=== PATIENT | male | born 1975 | race Hispanic/Latino ===

== ENCOUNTER 2021-01-05 02:14 | Inpatient (IN) | payer OTHER ==
[~2021-01-05] VITALS: Ht 175.3 cm; Wt 89.3 kg
[2021-01-05] MEDS ORDERED: FUROSEMIDE 40MG VIAL IV ONE (03:00)
[2021-01-05 03:03] LABS: ABG BASE EXCESS 0.5 mmol/L (-2.0-3.0); ABG HCO3 22.6 mmol/L (21.0-28.0); ABG OXYGEN SATURATION 90.9 % (95.0-99.0); ABG PCO2 30 mmHg (35-48)
[2021-01-05 03:08] LABS: BASOPHILS % (AUTO) 0.3 % (0.0-5.0); EOSINOPHILS % (AUTO) 0.1 % (0.0-8.0); HEMATOCRIT 48.1 % (42-54); LYMPHOCYTES % (AUTO) 6.3 % (21.0-51.0); MEAN CORPUSCULAR HEMOGLOBIN 32.3 pg (27.0-33.0); MEAN CORPUSCULAR HGB CONC 35.1 g/dL (32.0-36.0); MONOCYTES % (AUTO) 4.5 % (3.0-13.0); NEUTROPHILS % (AUTO) 88.4 % (40.0-77.0); PLATELET COUNT (AUTO) 218 K/uL (130-400); RED BLOOD CELL COUNT(AUTO) 5.23 MIL/uL (4.50-6.20); RED CELL DISTRIBUTION WIDTH 13.1 % (11.0-15.5); WHITE BLOOD COUNT (AUTO) 17.6 K/uL (4.8-10.8)
[2021-01-05 03:31] LABS: ALBUMIN 3.9 g/dL (3.5-5.0); BILIRUBIN,TOTAL 1.2 mg/dL (0.2-1.0); CREATININE 1.5 mg/dL (0.5-1.5); TOTAL PROTEIN, SERUM 7.4 g/dL (6.0-8.3)
[2021-01-05 03:48] LABS: INR 1.07 (0.85-1.15); PROTHROMBIN TIME 11.6 SEC (9.6-11.6)
[2021-01-05] MEDS ORDERED: AZITHROMYCIN 500MG VIAL IVPB ONE (04:00)
[2021-01-05] MEDS ORDERED: AZITHROMYCIN 500MG+NS 250ML 250 ML IV ONE (04:00)
[2021-01-05] MEDS ORDERED: PHARMACY COMMUNICATION MISC SCH ×2 (04:00→12:30)
[2021-01-05] MEDS ORDERED: CEFTRIAXONE 1G VIAL IVP ONE (04:00)
[2021-01-05 04:02] LABS: APPEARANCE,URINE Clear (CLEAR); BILIRUBIN,URINE Negative (NEGATIVE); COLOR,URINE Yellow (YELLOW); GLUCOSE, URINE (UA) Negative (NEGATIVE); KETONES,URINE Negative (NEGATIVE); LEUKOCYTE ESTERASE ,URINE Negative (NEGATIVE); NITRATE,URINE Negative (NEGATIVE); OCCULT BLOOD,URINE Negative (NEGATIVE); PROTEIN,URINE POS 2+ mg/dL (NEGATIVE); UROBILINOGEN,URINE 0.2 mg/dL (0.2-1.0)
[2021-01-05] MEDS ORDERED: AMLO-257 PO (04:12)
[2021-01-05] MEDS ORDERED: ALLO300T2 PO (04:12)
[2021-01-05] MEDS ORDERED: PRAV10TA39 PO (04:12)
[2021-01-05 04:25] LABS: BACTERIA,URINE Few /HPF (None Seen); RBC,URINE None Seen /HPF (0-1); SQUAMOUS EPITHELIAL CELL,UR 0-2 /HPF (0-2); WBC,URINE None Seen /HPF (0-1)
[2021-01-05] MEDS ORDERED: ACETAMINOPHEN 325 MG TAB PO PRN (04:30)
[2021-01-05] MEDS ORDERED: AZITHROMYCIN 500MG VIAL IVPB SCH (04:30)
[2021-01-05] MEDS ORDERED: ONDANSETRON 4MG INJ IV PRN (04:30)
[2021-01-05] MEDS ORDERED: 0.9% NACL 250ML IVPB SCH (04:30)
[2021-01-05] MEDS ORDERED: IPRATROPIUM/ALBUTEROL SULFATE 3 ML SOLUTION IH ONE (04:50)
[2021-01-05] MEDS: LACTATED RINGERS 1000ML 1,000 ML IV SCH ×2 (04:51→14:30)
[2021-01-05] MEDS ORDERED: POTASSIUM CHLORIDE 10% ELIXIR 20 MEQ/15 ML UDCUP PO PRN (05:00)
[2021-01-05] MEDS: POTASSIUM CHLORIDE 20MEQ/100ML 100 ML IV PRN (05:13)
[2021-01-05] MEDS: LIDOCAINE HCL-MPF 1% 2ML VIAL IV PRN (05:13)
[2021-01-05] MEDS: IPRATROPIUM/ALBUTEROL SULFATE 3 ML SOLUTION IH SCH ×3 (06:00→18:31)
[2021-01-05 08:36] LABS: AMPHET/METH SCREEN,URINE NEGATIVE (NEGATIVE); BARBITURATE SCREEN, URINE NEGATIVE (NEGATIVE); BENZODIAZEPINES SCREEN,URINE NEGATIVE (NEGATIVE); CANNABINOID SCREEN,URINE NEGATIVE (NEGATIVE); COCAINE SCREEN,URINE NEGATIVE (NEGATIVE); OPIATE SCREEN,URINE NEGATIVE (NEGATIVE); PHENCYCLIDINE SCREEN,URINE NEGATIVE (NEGATIVE)
[2021-01-05] MEDS: LEVOFLOXACIN 750 MG/D5W 150 ML 150 ML IV SCH (08:51)
[2021-01-05] MEDS: FAMOTIDINE 20MG VIAL IV SCH ×2 (08:51→22:21)
[2021-01-05] MEDS ORDERED: ENOXAPARIN SODIUM 40 MG/0.4 ML SYRINGE SQ SCH (09:00)
[2021-01-05 11:07] LABS: CREATININE 1.5 mg/dL (0.5-1.5); CRP QUANTITATIVE 119.8 mg/L (0.00-9.0); POTASSIUM 3.2 mmol/L (3.5-5.1)
[2021-01-05] MEDS ORDERED: SOLU-MEDROL 40MG VIAL ONE (11:30)
[2021-01-05] MEDS ORDERED: ASPIRIN 81MG CHEW TAB ONE (11:31)
[2021-01-05] MEDS ORDERED: ASPIRIN 81MG CHEW TAB PO ONE (12:30)
[2021-01-05] MEDS ORDERED: KCL 20 MEQ ERTAB PO ONE (12:30)
[2021-01-05] MEDS ORDERED: ROCURONIUM BROMIDE 10MG/1ML 5ML VL IV ONE (12:58)
[2021-01-05] MEDS ORDERED: SUCCINYLCHOLINE CHLORIDE 20 MG/ML 10 ML VIAL IVP ONE (12:58)
[2021-01-05] MEDS ORDERED: ETOMIDATE 20MG VIAL IVP ONE (12:58)
[2021-01-05 13:21] LABS: INR 1.1 (0.85-1.15); PROTHROMBIN TIME 11.9 SEC (9.6-11.6)
[2021-01-05 13:23] LABS: PARTIAL THROMBOPLASTIN TIME 29.9 SEC (26.3-35.5)
[2021-01-05] MEDS: HEPARIN 25000 UNITS/D5W 250ML IV SCH (14:11)
[2021-01-05] MEDS ORDERED: METOPROLOL TARTRATE 25 MG TAB ONE (14:21)
[2021-01-05] MEDS ORDERED: TICAGRELOR 90 MG TABLET ONE (14:21)
[2021-01-05] MEDS ORDERED: TICAGRELOR 90 MG TABLET PO SCH (14:30)
[2021-01-05] MEDS ORDERED: NITROGLYCERIN 0.4 MG SL TAB SL PRN (15:00)
[2021-01-05] MEDS ORDERED: LORAZEPAM 0.5 MG TABLET ONE (16:03)
[2021-01-05 19:36] LABS: CREATININE 1.7 mg/dL (0.5-1.5); POTASSIUM 3.1 mmol/L (3.5-5.1)
[2021-01-05 21:31] LABS: INR 1.15 (0.85-1.15); PROTHROMBIN TIME 12.4 SEC (9.6-11.6)
[2021-01-05 21:32] LABS: PARTIAL THROMBOPLASTIN TIME 47.6 SEC (26.3-35.5)
[2021-01-05] MEDS: TICAGRELOR 90 MG TABLET PO SCH (22:21)
[2021-01-05] MEDS: ATORVASTATIN 20 MG TABLET PO SCH (22:21)
[2021-01-05] MEDS: METOPROLOL TARTRATE 25 MG TAB PO SCH (22:21)
[2021-01-05 22:50] VITALS: BP 150/96
[2021-01-06] VITALS (13 sets, daily range): BP systolic 109–153; BP diastolic 48–98
[2021-01-06] MEDS: IPRATROPIUM/ALBUTEROL SULFATE 3 ML SOLUTION IH SCH ×4 (00:45→18:28)
[2021-01-06] MEDS: GUAIFENESIN-DM 200/20 MG 10 ML PO PRN ×4 (03:43→21:18)
[2021-01-06 04:25] LABS: HEMATOCRIT 44.8 % (42-54); MEAN CORPUSCULAR HEMOGLOBIN 31.9 pg (27.0-33.0); MEAN CORPUSCULAR HGB CONC 34.2 g/dL (32.0-36.0); MEAN CORPUSCULAR VOLUME 93.3 fL (79-99); MONOCYTES % (AUTO) 4.6 % (3.0-13.0); NEUTROPHILS % (AUTO) 86.8 % (40.0-77.0); PLATELET COUNT (AUTO) 234 K/uL (130-400); RED CELL DISTRIBUTION WIDTH 13.4 % (11.0-15.5); WHITE BLOOD COUNT (AUTO) 11.9 K/uL (4.8-10.8)
[2021-01-06] MEDS ORDERED: AZITHROMYCIN 500MG+NS 250ML 250 ML IV SCH (04:30)
[2021-01-06] MEDS ORDERED: CEFTRIAXONE 1G VIAL IV SCH (04:30)
[2021-01-06 04:55] LABS: CREATININE 1.4 mg/dL (0.5-1.5); PHOSPHORUS 4.3 mg/dL (2.5-4.9); POTASSIUM 3.5 mmol/L (3.5-5.1)
[2021-01-06] MEDS: HEPARIN 25000 UNITS/D5W 250ML IV SCH (05:08)
[2021-01-06] MEDS: METOPROLOL TARTRATE 25 MG TAB PO SCH ×2 (08:04→21:18)
[2021-01-06] MEDS ORDERED: HEPARIN 10,000 UNIT/10ML (1,000 UNIT/ML) VIAL ONE (08:05)
[2021-01-06] MEDS: SOLU-MEDROL 40MG VIAL IVP SCH (08:05)
[2021-01-06] MEDS ORDERED: NITROGLYCERIN 2 MG VIAL IV ONE (08:05)
[2021-01-06] MEDS: ASPIRIN 81MG CHEW TAB PO SCH (08:05)
[2021-01-06] MEDS: TICAGRELOR 90 MG TABLET PO SCH ×2 (08:05→21:18)
[2021-01-06] MEDS ORDERED: IOHEXOL 350 MG/ML 100ML INFUS..BTL IV ONE (08:06)
[2021-01-06] MEDS ORDERED: LIDOCAINE HCL 400MG/20ML VIAL ONE (08:06)
[2021-01-06] MEDS: FAMOTIDINE 20MG VIAL IV SCH ×2 (08:07→21:18)
[2021-01-06] MEDS ORDERED: FENTANYL CITRATE PF 50 MCG/1 ML 2ML VIAL ONE (08:36)
[2021-01-06] MEDS ORDERED: MIDAZOLAM HCL 1 MG/ML 2ML VIAL ONE (08:36)
[2021-01-06] MEDS ORDERED: NICARDIPINE 25MG INJ IV ONE (08:48)
[2021-01-06] MEDS: LEVOFLOXACIN 750 MG/D5W 150 ML 150 ML IV SCH (11:29)
[2021-01-06] MEDS ORDERED: HEPARIN 5,000 UNIT VIAL IJ PRN (14:30)
[2021-01-06] MEDS: LINEZOLID 600 MG/ISO-OSM 300 ML IV SCH (16:42)
[2021-01-06] MEDS: ATORVASTATIN 20 MG TABLET PO SCH (21:18)
[2021-01-06] MEDS ORDERED: HYDROXYZINE 25 MG TABLET ONE (23:16)
[2021-01-06] MEDS ORDERED: HYDROXYZINE 25 MG TABLET PO ONE (23:30)
[2021-01-07] VITALS (36 sets, daily range): BP systolic 71–155; BP diastolic 42–99
[2021-01-07] MEDS: IPRATROPIUM/ALBUTEROL SULFATE 3 ML SOLUTION IH SCH ×2 (00:25→06:59)
[2021-01-07 01:33] LABS: BASOPHILS % (AUTO) 0.1 % (0.0-5.0); EOSINOPHILS % (AUTO) 0.1 % (0.0-8.0); HEMATOCRIT 46.4 % (42-54); LYMPHOCYTES % (AUTO) 4.9 % (21.0-51.0); MEAN CORPUSCULAR HEMOGLOBIN 32.5 pg (27.0-33.0); MEAN CORPUSCULAR HGB CONC 34.5 g/dL (32.0-36.0); MEAN CORPUSCULAR VOLUME 94.3 fL (79-99); MONOCYTES % (AUTO) 4.6 % (3.0-13.0); NEUTROPHILS % (AUTO) 89.8 % (40.0-77.0); PLATELET COUNT (AUTO) 218 K/uL (130-400); RED BLOOD CELL COUNT(AUTO) 4.92 MIL/uL (4.50-6.20); RED CELL DISTRIBUTION WIDTH 13.6 % (11.0-15.5); WHITE BLOOD COUNT (AUTO) 18.1 K/uL (4.8-10.8)
[2021-01-07 01:42] LABS: HEMOGLOBIN A1C 5.5 % (4.0-6.0)
[2021-01-07 01:47] LABS: CREATININE 1.7 mg/dL (0.5-1.5); TOTAL PROTEIN, SERUM 6.5 g/dL (6.0-8.3)
[2021-01-07] MEDS: GUAIFENESIN-DM 200/20 MG 10 ML PO PRN ×2 (02:07→05:29)
[2021-01-07] MEDS ORDERED: BENZONATATE 100 MG CAPSULE PO PRN (02:30)
[2021-01-07] MEDS: KCL 20 MEQ ERTAB PO PRN ×2 (02:56→05:05)
[2021-01-07] MEDS: LIDOCAINE HCL-MPF 1% 2ML VIAL IV PRN (02:56)
[2021-01-07] MEDS: POTASSIUM CHLORIDE 20MEQ/100ML 100 ML IV PRN (02:56)
[2021-01-07] MEDS: LINEZOLID 600 MG/ISO-OSM 300 ML IV SCH ×2 (05:03→19:31)
[2021-01-07] MEDS: LEVOFLOXACIN 750 MG/D5W 150 ML 150 ML IV SCH (07:18)
[2021-01-07] MEDS ORDERED: DOXYCYCLINE 100MG IVPB (VIAL) IVPB SCH (07:30)
[2021-01-07] MEDS ORDERED: RENAL DOSE IV SCH (07:30)
[2021-01-07] MEDS ORDERED: 0.9% NACL 250ML IVPB SCH (07:30)
[2021-01-07] MEDS ORDERED: IPRATROPIUM/ALBUTEROL SULFATE 3 ML SOLUTION IH PRN (08:00)
[2021-01-07] MEDS: FAMOTIDINE 20MG VIAL IV SCH ×2 (08:12→21:23)
[2021-01-07] MEDS: MEROPENEM 1 GM VIAL IVP SCH ×3 (08:13→23:58)
[2021-01-07] MEDS: FUROSEMIDE 40MG VIAL IV SCH ×3 (08:13→19:31)
[2021-01-07] MEDS: DOXYCYCLINE 100MG+NS 250ML 250 ML IV SCH ×2 (08:13→21:32)
[2021-01-07] MEDS: MORPHINE 2 MG SYG IVP SCH (08:14)
[2021-01-07] MEDS: SOLU-MEDROL 40MG VIAL IVP SCH (08:14)
[2021-01-07] MEDS: METOPROLOL TARTRATE 25 MG TAB PO SCH ×2 (08:15→21:00)
[2021-01-07] MEDS: ASPIRIN 81MG CHEW TAB PO SCH (08:15)
[2021-01-07] MEDS: TICAGRELOR 90 MG TABLET PO SCH ×2 (08:15→21:32)
[2021-01-07] MEDS: POTASSIUM CHLORIDE 10MEQ/100ML 10 MEQ/100 ML ML IV SCH (11:00)
[2021-01-07] MEDS ORDERED: PROPOFOL 1000 MG/100 ML 100 ML IV ONE ×3 (11:02→18:26)
[2021-01-07] MEDS ORDERED: FENTANYL CITRATE PF 50 MCG/1 ML 2ML VIAL ONE (11:09)
[2021-01-07] MEDS: FENTANYL 100 MCG/HR PATCH TD SCH (11:30)
[2021-01-07] MEDS ORDERED: DOBUTAMINE 250MG/D5 250ML 250 ML IV SCH (12:00)
[2021-01-07] MEDS ORDERED: PHARMACY COMMUNICATION MISC SCH (12:00)
[2021-01-07] MEDS ORDERED: ROCURONIUM 100 MG/NS 100ML (DRIP) IV SCH ×2 (12:00)
[2021-01-07] MEDS ORDERED: PERFLUTREN PROTEIN-A MICROSPHR 0.22 MG/ML VIAL IV ONE (12:00)
[2021-01-07] MEDS ORDERED: 0.9% NACL 500ML IV.SOLN 500 ML IV ONE (12:16)
[2021-01-07] MEDS ORDERED: MIDAZOLAM 50MG-0.9% NS 50ML 50 ML BAG IV SCH (12:30)
[2021-01-07 12:52] LABS: ABG BASE EXCESS -3.5 mmol/L (-2.0-3.0); ABG OXYGEN SATURATION 84.1 % (95.0-99.0); ABG PCO2 47 mmHg (35-48)
[2021-01-07 13:20] LABS: BASOPHILS % (AUTO) 0.1 % (0.0-5.0); HEMATOCRIT 44.4 % (42-54); LYMPHOCYTES % (AUTO) 2.8 % (21.0-51.0); MEAN CORPUSCULAR HEMOGLOBIN 32.2 pg (27.0-33.0); MEAN CORPUSCULAR HGB CONC 33.6 g/dL (32.0-36.0); MEAN CORPUSCULAR VOLUME 95.9 fL (79-99); MONOCYTES % (AUTO) 2.4 % (3.0-13.0); PLATELET COUNT (AUTO) 240 K/uL (130-400); RED BLOOD CELL COUNT(AUTO) 4.63 MIL/uL (4.50-6.20); RED CELL DISTRIBUTION WIDTH 13.6 % (11.0-15.5); WHITE BLOOD COUNT (AUTO) 15.4 K/uL (4.8-10.8)
[2021-01-07 13:29] LABS: INR 1.15 (0.85-1.15); PROTHROMBIN TIME 12.4 SEC (9.6-11.6)
[2021-01-07 13:31] LABS: PARTIAL THROMBOPLASTIN TIME 24.8 SEC (26.3-35.5)
[2021-01-07 13:42] LABS: POTASSIUM 3.9 mmol/L (3.5-5.1)
[2021-01-07 13:43] LABS: BILIRUBIN,DIRECT 0.3 mg/dL (0.0-0.3); BILIRUBIN,TOTAL 1.2 mg/dL (0.2-1.0); CREATININE 1.9 mg/dL (0.5-1.5); MAGNESIUM 1.9 mg/dL (1.80-2.40); PHOSPHORUS 5.2 mg/dL (2.5-4.9)
[2021-01-07 13:44] LABS: ALBUMIN 2.6 g/dL (3.5-5.0); TOTAL PROTEIN, SERUM 6.1 g/dL (6.0-8.3)
[2021-01-07] MEDS ORDERED: HEPARIN 10,000 UNIT/10ML (1,000 UNIT/ML) VIAL ONE (14:11)
[2021-01-07] MEDS ORDERED: LIDOCAINE HCL 400MG/20ML VIAL ONE (14:11)
[2021-01-07] MEDS: FENTANYL 2500MCG+NS 250ML IV.SOLN IV SCH ×2 (14:39→21:57)
[2021-01-07] MEDS ORDERED: IOHEXOL 350 MG/ML 100ML INFUS..BTL IV ONE (14:47)
[2021-01-07] MEDS ORDERED: HEPARIN 25,000 UNITS/250ML D5W 250 ML IV ONE (15:48)
[2021-01-07] MEDS ORDERED: DEXTROSE 5%-WATER 1,000 ML IV SCH (17:00)
[2021-01-07 17:54] LABS: ABG HCO3 22.8 mmol/L (21.0-28.0); ABG OXYGEN SATURATION 98.9 % (95.0-99.0); ABG PCO2 39 mmHg (35-48)
[2021-01-07] MEDS: WATER IV SCH (18:15)
[2021-01-07] MEDS: HEPARIN IV SCH (18:15)
[2021-01-07] MEDS: DEXTROSE 5% IV SCH (18:15)
[2021-01-07] MEDS: NOREPINEPHRIN 4MG/NS 250ML 250 ML IV SCH (18:33)
[2021-01-07 18:44] LABS: HEMATOCRIT 39.4 % (42-54); MEAN CORPUSCULAR HEMOGLOBIN 32.4 pg (27.0-33.0); MEAN CORPUSCULAR VOLUME 95.4 fL (79-99); PLATELET COUNT (AUTO) 256 K/uL (130-400); RED BLOOD CELL COUNT(AUTO) 4.13 MIL/uL (4.50-6.20); RED CELL DISTRIBUTION WIDTH 13.2 % (11.0-15.5); WHITE BLOOD COUNT (AUTO) 17.7 K/uL (4.8-10.8)
[2021-01-07 18:59] LABS: CREATININE 2.1 mg/dL (0.5-1.5); POTASSIUM 3.9 mmol/L (3.5-5.1)
[2021-01-07 19:10] LABS: BAND NEUTROPHILS % (MANUAL) 6 % (0-2); LYMPHOCYTES % (MANUAL) 2 % (22-44); MAN.DIFF COMMENT-IMPRESSION MANUAL DIFFERENTIAL; MONOCYTES % (MANUAL) 4 % (2-9); SEGMENTED NEUTROPHILS % 88 % (40-70)
[2021-01-07 19:11] LABS: PLATELET MORPHOLOGY COMMENT LARGE PLTS PRESENT
[2021-01-07] MEDS: ATORVASTATIN 20 MG TABLET PO SCH (21:33)
[2021-01-07] MEDS: MIDAZOLAM 100MG-0.9% NS 100ML 100 ML IV SCH (21:39)
[2021-01-07 22:06] LABS: APPEARANCE BODY FLUID CLOUDY (CLEAR); BODY FLUID WBC 465 /cu. mm.; COLOR,BODY FLUID ORANGE (LT YELLOW); SPECIMENTYPE,BODY FLUID WASHINGS; TOTAL VOLUME,BODY FLUID 17 mL
[2021-01-07 22:07] LABS: BODY FLUID RBC 6462 /cu. mm.; PH, BODY FLUID 6
[2021-01-07 22:09] LABS: GLUCOSE,BODY FLUID 24 mg/dL (1-40)
[2021-01-07 22:19] LABS: BF EOSINOPHIL 1 %; BF LYMPHOCYTE 4 %
[2021-01-08] VITALS (43 sets, daily range): BP systolic 111–131; BP diastolic 77–96
[2021-01-08] MEDS: NOREPINEPHRIN 4MG/NS 250ML 250 ML IV SCH ×2 (01:14→14:38)
[2021-01-08 04:20] LABS: BASOPHILS % (AUTO) 0.1 % (0.0-5.0); EOSINOPHILS % (AUTO) 0.1 % (0.0-8.0); LYMPHOCYTES % (AUTO) 7.7 % (21.0-51.0); MEAN CORPUSCULAR HEMOGLOBIN 31.8 pg (27.0-33.0); MEAN CORPUSCULAR HGB CONC 33.5 g/dL (32.0-36.0); MEAN CORPUSCULAR VOLUME 94.9 fL (79-99); MONOCYTES % (AUTO) 7.8 % (3.0-13.0); NEUTROPHILS % (AUTO) 83.6 % (40.0-77.0); PLATELET COUNT (AUTO) 212 K/uL (130-400); RED CELL DISTRIBUTION WIDTH 13.2 % (11.0-15.5); WHITE BLOOD COUNT (AUTO) 14.9 K/uL (4.8-10.8)
[2021-01-08 04:38] LABS: ALBUMIN 2.2 g/dL (3.5-5.0); BILIRUBIN,TOTAL 0.9 mg/dL (0.2-1.0); CREATININE 2.5 mg/dL (0.5-1.5); POTASSIUM 3.6 mmol/L (3.5-5.1); TOTAL PROTEIN, SERUM 5.3 g/dL (6.0-8.3)
[2021-01-08] MEDS: LINEZOLID 600 MG/ISO-OSM 300 ML IV SCH (06:09)
[2021-01-08 06:36] LABS: ABG BASE EXCESS -1.6 mmol/L (-2.0-3.0); ABG HCO3 22.7 mmol/L (21.0-28.0); ABG OXYGEN SATURATION 97.9 % (95.0-99.0); ABG PCO2 37 mmHg (35-48)
[2021-01-08] MEDS: FUROSEMIDE 40MG VIAL IV SCH ×2 (07:17→07:59)
[2021-01-08] MEDS: MEROPENEM 1 GM VIAL IVP SCH ×2 (07:17→14:38)
[2021-01-08] MEDS: MORPHINE 2 MG SYG IVP SCH (07:58)
[2021-01-08] MEDS: POTASSIUM CHLORIDE 10MEQ/100ML 10 MEQ/100 ML ML IV SCH ×2 (07:59→12:00)
[2021-01-08] MEDS: FENTANYL 100 MCG/HR PATCH TD SCH (07:59)
[2021-01-08] MEDS: METOPROLOL TARTRATE 25 MG TAB PO SCH (08:00)
[2021-01-08] MEDS: SOLU-MEDROL 40MG VIAL IVP SCH (08:09)
[2021-01-08] MEDS: DOXYCYCLINE 100MG+NS 250ML 250 ML IV SCH (08:09)
[2021-01-08] MEDS: FAMOTIDINE 20MG VIAL IV SCH (08:09)
[2021-01-08] MEDS: TICAGRELOR 90 MG TABLET PO SCH (08:10)
[2021-01-08] MEDS: ASPIRIN 81MG CHEW TAB PO SCH (08:10)
[2021-01-08] MEDS: FENTANYL 2500MCG+NS 250ML IV.SOLN IV SCH (09:31)
[2021-01-08 10:00] LABS: APPEARANCE,URINE CLEAR (CLEAR); BILIRUBIN,URINE NEGATIVE (NEGATIVE); COLOR,URINE YELLOW (YELLOW); GLUCOSE, URINE (UA) NEGATIVE (NEGATIVE); KETONES,URINE NEGATIVE (NEGATIVE); LEUKOCYTE ESTERASE ,URINE TRACE (NEGATIVE); NITRATE,URINE NEGATIVE (NEGATIVE); OCCULT BLOOD,URINE LARGE (NEGATIVE); PROTEIN,URINE NEGATIVE (NEGATIVE); UROBILINOGEN,URINE 0.2 mg/dL (0.2-1.0)
[2021-01-08 10:11] LABS: BACTERIA,URINE Rare /HPF (None Seen); SQUAMOUS EPITHELIAL CELL,UR Rare /HPF (0-2); WBC,URINE 0-1 /HPF (0-1)
[2021-01-08 10:21] LABS: THYROID STIMULATING HORMONE 0.89 uIU/mL (0.36-3.74); URIC ACID 7.8 mg/dL (2.6-7.2)
[2021-01-08] MEDS ORDERED: HEPARIN 25,000 UNITS/250ML D5W 250 ML IV ONE (10:43)
[2021-01-08] MEDS ORDERED: HEPARIN 25,000 UNITS/250ML D5W 250 ML IV SCH (11:00)
[2021-01-08] MEDS: HEPARIN IV SCH (13:04)
[2021-01-08] MEDS: DEXTROSE 5% IV SCH (13:04)
[2021-01-08] MEDS: WATER IV SCH (13:04)
[2021-01-08] MEDS: MIDAZOLAM 100MG-0.9% NS 100ML 100 ML IV SCH (14:37)
[2021-01-09 05:52] LABS: HANTA VIRUS IGM-ELISA SEE SEPERATE REPORT (<2.00)
== END 2021-01-08 15:45 | disposition short-term general hospital (02) | DRG 853 ==
LOC: EDH 02:14 → EDHIP 04:08 → 4AH 21:43 → 2DH 01-07 05:12 → 2CV 01-07 17:22
PROVIDERS: ADMIT Internal Medicine; ATTEND Internal Medicine
PROC: 4A023N7 Measurement of Cardiac Sampling and Pressure, Left Heart, Percutaneous Approach (ICD-10-PCS; 2021-01-06)
PROC: B2111ZZ Fluoroscopy of Multiple Coronary Arteries using Low Osmolar Contrast (ICD-10-PCS; 2021-01-06)
PROC: 02HA3RZ Insertion of Short-term External Heart Assist System into Heart, Percutaneous Approach (ICD-10-PCS; principal; 2021-01-07)
PROC: 5A0221D Assistance with Cardiac Output using Impeller Pump, Continuous (ICD-10-PCS; 2021-01-07)
PROC: B41F1ZZ Fluoroscopy of Right Lower Extremity Arteries using Low Osmolar Contrast (ICD-10-PCS; 2021-01-07)
PROC: 5A09357 Assistance with Respiratory Ventilation, Less than 24 Consecutive Hours, Continuous Positive Airway Pressure (ICD-10-PCS; 2021-01-07)
PROC: 0B9D8ZX Drainage of Right Middle Lung Lobe, Via Natural or Artificial Opening Endoscopic, Diagnostic (ICD-10-PCS; 2021-01-07)
PROC: 02HV33Z Insertion of Infusion Device into Superior Vena Cava, Percutaneous Approach (ICD-10-PCS; 2021-01-07)
PROC: B548ZZA Ultrasonography of Superior Vena Cava, Guidance (ICD-10-PCS; 2021-01-07)
PROC: 4A023N6 Measurement of Cardiac Sampling and Pressure, Right Heart, Percutaneous Approach (ICD-10-PCS; 2021-01-07)
PROC: B2111ZZ Fluoroscopy of Multiple Coronary Arteries using Low Osmolar Contrast (ICD-10-PCS; 2021-01-07)
PROC: 5A1945Z Respiratory Ventilation, 24-96 Consecutive Hours (ICD-10-PCS; 2021-01-07)
PROC: 0BH17EZ Insertion of Endotracheal Airway into Trachea, Via Natural or Artificial Opening (ICD-10-PCS; 2021-01-07)
DX: A41.9 Sepsis, unspecified organism (principal); J18.9 Pneumonia, unspecified organism; I50.41 Acute combined systolic (congestive) and diastolic (congestive) heart failure; J80 Acute respiratory distress syndrome; R57.0 Cardiogenic shock; I21.4 Non-ST elevation (NSTEMI) myocardial infarction; N17.9 Acute kidney failure, unspecified; E87.6 Hypokalemia; E78.5 Hyperlipidemia, unspecified; M10.9 Gout, unspecified; Z20.822 Contact with and (suspected) exposure to COVID-19; E11.9 Type 2 diabetes mellitus without complications; E78.00 Pure hypercholesterolemia, unspecified; I11.0 Hypertensive heart disease with heart failure; I25.10 Atherosclerotic heart disease of native coronary artery without angina pectoris; I25.5 Ischemic cardiomyopathy; E66.9 Obesity, unspecified; Z68.29 Body mass index [BMI] 29.0-29.9, adult; Z88.0 Allergy status to penicillin; Z79.02 Long term (current) use of antithrombotics/antiplatelets; Z79.82 Long term (current) use of aspirin; Z79.899 Other long term (current) drug therapy; Z87.891 Personal history of nicotine dependence; Z82.49 Family history of ischemic heart disease and other diseases of the circulatory system
CPT/HCPCS: 31500; 33990; 36245; 36415; 36600; 71045; 71250; 75710; 76770; 80048; 80053; 80061; 80076; 80305; 81001; 82435; 82550; 82803; 82945; 82947; 82948; 83036; 83520; 83605; 83615; 83690; 83735; 83880; 83935; 83986; 84100; 84132; 84145; 84157; 84295; 84300; 84443; 84484; 84550; 85018; 85025; 85378; 85610; 85651; 85730; 86038; 86140; 86200; 86215; 86235; 86255; 86431; 86606; 86612; 86635; 86698; 86738; 86757; 86790; 86850; 86900; 86901; 87040; 87071; 87101; 87116; 87205; 87206; 87449; 87486; 87581; 87633; 87635; 87798; 87804; 89051; 93005; 93306; 93451; 93452; 93454; 94002; 94003; 94640; 94660; 94664; 99156; 99157; A4357; C1769; C1894; C9803; G0378; J0330; J0456; J0696; J1250; J1644; J1650; J1940; J1956; J2020; J2185; J2250; J2704; J2920; J3010; J3480; J3490; J7040; J7070; J7120; Q9967